=== PATIENT | male | born 1995 | race Caucasian/White ===

== ENCOUNTER 2017-06-14 20:39 | Emergency (ER) | payer MEDICAID, OTHER ==
[~2017-06-14] VITALS: Ht 172.7 cm; Wt 82.0 kg
[2017-06-14 22:56] VITALS: BP 129/78
== END 2017-06-14 22:58 | disposition home or self-care (01) ==
LOC: ER 20:54
DX: R07.89 Other chest pain (principal); F12.10 Cannabis abuse, uncomplicated
CPT/HCPCS: 71010; 93005; 99284; Z7610